=== PATIENT | male | born 1990 | race Caucasian/White ===

== ENCOUNTER 2024-01-09 19:10 | Emergency (ER) | payer BC ==
[~2024-01-09] VITALS: Ht 193 cm; Wt 120.5 kg
[2024-01-09 19:16] VITALS: TEMP 98.4
[2024-01-09] MEDS ORDERED: DOXYCYCLINE HY100 MG PO (20:36)
[2024-01-09 21:05] VITALS: BP 150/93; PULSE 79
== END 2024-01-09 21:08 | disposition home or self-care (01) ==
LOC: COL.ER 19:10
DX: L72.0 Epidermal cyst (principal)